=== PATIENT | male | born 1945 | race Caucasian/White ===

== ENCOUNTER → 2016-12-18 | Outpatient (CLI) | payer BC ==
[~2016-12-18] MED LIST: ASPIRIN325 M1 PO; CENTRUM SILVER PO; FLOMAX0.4 M1 PO; LISINOPRIL10 MG PO
--- NOTE | ~2016-12-18 | EKG ---
PATIENT: BRIGETTE SCHULZ UNIT #: [id number] Ventricular Rate: 82 BPM Atrial Rate: 82 BPM P-R Interval: 186 ms QRS Duration: 148 ms Q-T Interval: 438 ms QTC Calculation(Bezet): 511 ms P [place]: 33 degrees Calculated R [place]: -66 degrees Calculated T [place]: 3 degrees Diagnosis Line: Normal sinus rhythm Diagnosis Line: Right bundle branch block Diagnosis Line: Left anterior fascicular block Diagnosis Line: Bifascicular block Diagnosis Line: Abnormal ECG Diagnosis Line: No previous ECGs available Diagnosis Line: Confirmed by ARMIDA HUNG MD ([id number]) on 12/18/2016 Diagnosis Line: 10:24:30 PM INTERPRETING MD: ANABELL MCKEON
[2016-12-18 12:04] LABS: ALBUMIN SERUM 3.9 g/dL (3.5-5.0); CALCIUM SERUM 9.5 mg/dL (8.4-10.2); CREATININE SERUM 0.8 mg/dL (0.6-1.4); GLOM FILT RATE Estimated 89.9 mL/min (>60); POTASSIUM 4.7 mmol/L (3.5-5.1); PROTEIN TOTAL SERUM 6.8 g/dL (6.0-8.3)
[2016-12-18 12:07] LABS: TESTOSTERONE TOTAL 192.97 ng/dL (17-781)
== END | disposition home or self-care (01) ==
LOC: CLAB 10:14
DX: Z00.00 Encounter for general adult medical examination without abnormal findings (principal)
CPT/HCPCS: 36415; 80053; 80061; 84403; 93005